=== PATIENT | female | born 1995 | race Caucasian/White ===

== ENCOUNTER 2020-07-10 02:06 | Emergency (ER) | payer OTHER ==
[~2020-07-10] VITALS: Ht 157.5 cm; Wt 56.2 kg
[2020-07-10 02:20] VITALS: Ht 157.5 cm; Wt 56.2 kg
[2020-07-10 04:40] VITALS: BP 142/78
== END 2020-07-10 04:40 | disposition home or self-care (01) ==
LOC: ED 02:06
DX: S16.1XXA Strain of muscle, fascia and tendon at neck level, initial encounter (principal); X58.XXXA Exposure to other specified factors, initial encounter; Y93.89 Activity, other specified; Y92.89 Other specified places as the place of occurrence of the external cause; Y99.8 Other external cause status
CPT/HCPCS: J1885

== ENCOUNTER 2020-07-12 11:25 | Emergency (ER) | payer OTHER | END 2020-07-12 11:39 | disposition left against medical advice (07) | LOC: ED 11:25 | DX: Z53.21 Procedure and treatment not carried out due to patient leaving prior to being seen by health care provider (principal) ==

== ENCOUNTER 2020-08-25 18:14 | Emergency (ER) | payer OTHER, SELFPAY ==
[~2020-08-25] VITALS: Ht 162.6 cm; Wt 56.7 kg
[2020-08-25 18:21] VITALS: BP 136/100; Ht 162.6 cm; Wt 56.7 kg
== END 2020-08-25 20:25 | disposition home or self-care (01) ==
LOC: ED 18:14
DX: J98.01 Acute bronchospasm (principal); Z20.828 Contact with and (suspected) exposure to other viral communicable diseases

== ENCOUNTER 2020-09-06 00:01 | Emergency (ER) | payer OTHER ==
[~2020-09-06] VITALS: Ht 162.6 cm; Wt 57.2 kg
[2020-09-06 00:03] VITALS: BP 108/87; Ht 162.6 cm; Wt 57.2 kg
== END 2020-09-06 03:00 | disposition home or self-care (01) ==
LOC: ED 00:01
DX: F41.9 Anxiety disorder, unspecified (principal)